=== PATIENT | male | born 1945 | race Caucasian/White ===

== ENCOUNTER → 2020-12-13 09:48 | Outpatient (BNVA) | payer MEDICARE, SELFPAY | PROVIDERS: PCP Internal Medicine; Visit Provider Urology | DX: N52.9 Male erectile dysfunction, unspecified (principal); C61 Malignant neoplasm of prostate | CPT/HCPCS: 99212 ==

== ENCOUNTER → 2021-12-14 09:22 | Outpatient (BNVA) | payer MEDICARE, BC, SELFPAY | PROVIDERS: PCP Internal Medicine; Visit Provider Urology | DX: C61 Malignant neoplasm of prostate (principal); N40.1 Benign prostatic hyperplasia with lower urinary tract symptoms; N52.9 Male erectile dysfunction, unspecified; N13.8 Other obstructive and reflux uropathy | CPT/HCPCS: 99212 ==

== ENCOUNTER 2023-02-14 08:53 | Outpatient (AMB) | payer MEDICARE, BC, SELFPAY ==
--- NOTE | 2023-02-14 08:56 | A.OFFVIS_ITS ---
Intake Intake Visit Reasons: 1Y PSA(set) Intake Note: Patient is Present for Follow Up PSA Urology Medication: None Antibiotic Allergies:None Blood Thinners:None [facility]: [facility] Required: No Allergies No Known Allergies Allergy (Verified 02/14/23 08:56) Medication List - Last Reconciled 02/14/23 by Saúl Paez MD omeprazole 20 mg PO DAILY HPI HPI Comments History of Present Illness Details Kristopher Bacon is very pleasant male.. He is a patient of Dr. Osorio. He is seen for the following urologic conditions. - prostate cancer - erectile dysfunction Continues to maintain effective urination PSA remains low Next year will be 10 years Discussed follow-up with PCP following 10 year rico Prostate cancer: Low-grade low volume prostate cancer diagnosed 2013 PSA remaining low Minimal issues with urination Continue with yearly follow-up ? Prostate cancer was diagnosed?2013.? Diagnosis was reached by?needle biopsy, for elevated PSA, PSA at diagnosis 7.7, size at TRUS 34cc.? The Harmony grade is?3+3 = 6.? TNM Classification of Malignant Tumours (TNM)?T1c.? The D'Henna (NCCN) risk category is?Low Risk (PSA< 10, Gl < 7, T1c).? Initial therapy included?Primary treatment, Brachytherapy, Additional treatment, Observation ? Recent labs included?a PSA (prostate-specific antigen) ?10/19 0.3, 05/22 0.2,, 11/19 0.2, 05/23 0.1, 11/20 0.1, 05/24 0.1, 11/21 0.1 - 5 yr move to yearly, 12/24 <0.1, 11/24 <0.1, 12/26 <0.1 ? Associated conditions ? erectile dysfunction ?Yes ? Erectile JUAN Score ?20 ? Therapeutic plan:?Continue with surveillance Erectile dysfunction:? He presents today for?for continued evaluation and management of e rectile dysfunction ?- at his point erectile performance not of interest to him or his .? Procedure(s)/Diagnosis causing dysfunction include?prostate brachytherapy.? Current treatment includes?none.? Treatment side effects include?none.? Prior therapies include?oral medications ?- 100mg sildenafil.? At this time he experiences erections?are partial and adequate for vaginal penetration, that last until ejaculation, JUAN 12-16 Mild-Moderate ED.? Nocturnal erections?do not occur.? Currently they are?in a stable relationship, has a partner who is interested in treatment.? Overall he is ?satisfied with the current management REPLACED BY [facility] Medical History GERD (gastroesophageal reflux disease) History of kidney stones Erectile dysfunction Prostate cancer Surgical History History of surgery Review of Systems Const Denies chills and Denies fever(s) Card Reports no additional complaints and Denies syncope Resp Denies cough GI Denies abdominal pain and Denies heartburn Reports as per HPI and Denies change in libido Neuro Denies syncope Psych Denies change in libido Endo Denies change in libido Physical Exam Const General: cooperative, healthy appearing, comfortable and no acute distress Orientation/consciousness: patient oriented x3 HEENT Face and sinus: Yes normal facial exam Mouth: moist mucous membranes Neck Neck: Yes normal visual inspection, Yes full ROM and Yes trachea midline Chest Chest palpation & inspection: normal inspection of the chest Resp Effort & Inspection: normal respiratory effort, able to speak in complete [place] and no respiratory distress GI Inspection: Yes normal to inspection Back/Spine/Pelvis Cervical Spine: normal cervical lordosis Thoracic/Lumbar Spine: thoracic and lumbar spine normal to inspection Skin General skin exam: no rashes or lesions noted Neuro General: patient oriented x3, gait normal, tone normal and moves all extremities Extrem General: Yes normal to inspection and Yes capillary refill normal Assessment & Plan Assessment & Plan (1) Prostate cancer: Code(s): C61 - Malignant neoplasm of prostate (2) Erectile dysfunction: Code(s): N52.9 - Male erectile dysfunction, unspecified Plan Twelve month follow-up Orders: Orders Prostate Specific Antigen 364 Days C61 - Malignant neoplasm of prostate Patient Instructions: Imaging studies, laboratory and physical exam results were discussed and reviewed in detail. No major barriers to patient understanding were identified. An opportunity to ask questions regarding the treatment plan was provided. All questions were answered. The patient expressed understanding and agreement with the above treatment plan. The patient is aware they should contact our office by phone for worsening of their current condition or the appearance of new urologic symptoms. Compliance is encouraged with any medications and followup testing that is ordered. It is a privilege to participate in the urologic care of your patient. If you have any questions or concerns regarding treatment for the above conditions, or other urologic issues, please do not hesitate to contact me. The office telephone contact is [phone]. This note is constructed using voice recognition software. While every effort has been made to ensure accuracy certified nurse operating room errors may have been included. Yours sincerely, Dr Saúl Paez MD, [facility] - Urology Providers of Expert, Compassionate Care for the Genitourinary System Coding Level of Care Code Est Pt Level 4 (75274) Diagnoses Prostate cancer C61 Erectile dysfunction N52.9
== END 2023-02-14 09:45 | disposition home or self-care (01) ==
PROVIDERS: PCP Internal Medicine; Visit Provider Urology
DX: C61 Malignant neoplasm of prostate (principal); N52.9 Male erectile dysfunction, unspecified
CPT/HCPCS: 99213

== ENCOUNTER → 2023-02-14 08:53 | Outpatient (BNVA) | payer MEDICARE, BC, SELFPAY | PROVIDERS: Visit Provider Urology | DX: C61 Malignant neoplasm of prostate (principal); N52.9 Male erectile dysfunction, unspecified | CPT/HCPCS: 99212 ==

== ENCOUNTER 2024-02-13 08:27 | Outpatient (AMB) | payer MEDICARE, SELFPAY ==
--- NOTE | 2024-02-13 08:46 | A.OFFVIS_ITS ---
Intake Visit Reasons: 1Y PSA(SET) Intake Note: Patient is Present for Follow Up PSA Urology Medication:None Antibiotic Allergies: None Blood Thinners:None Recent PSA: 02/07/2024- <0.04 Accompanied by: Self / Same As Patient Allergies No Known Allergies Allergy (Verified 02/13/24 08:48) HPI Comments Details: Kristopher Bacon is very pleasant male.. He is a patient of Dr. Osorio. He is seen for the following urologic conditions. - prostate cancer - erectile dysfunction Here for yearly follow-up PSA remains nondetectable Interval surveillance Prostate cancer: Low-grade low volume prostate cancer diagnosed 2013 PSA remaining low Minimal issues with urination Continue with yearly follow-up ? Prostate cancer was diagnosed?2013.? Diagnosis was reached by?needle biopsy, for elevated PSA, PSA at diagnosis 7.7, size at TRUS 34cc.? The Mekhi grade is?3+3 = 6.? TNM Classification of Malignant Tumours (TNM)?T1c.? The D'Henna (NCCN) risk category is?Low Risk (PSA< 10, Gl < 7, T1c).? Initial therapy included?Primary treatment, Brachytherapy, Additional treatment, Observation ? Recent labs included?a PSA (prostate-specific antigen) ?10/19 0.3, 05/22 0.2,, 11/19 0.2, 05/23 0.1, 11/20 0.1, 05/24 0.1, 11/21 0.1 - 5 yr move to yearly, 12/24 <0.1, 11/24 <0.1, 12/26 <0.1, 02/26 <0.1 ? Associated conditions ? erectile dysfunction ?Yes ? Erectile JUAN Score ?20 ? Therapeutic plan:?Continue with surveillance Erectile dysfunction:? He presents today for?for continued evaluation and management of erectile dysfunction ?- at his point erectile performance not of interest to him or his .? Procedure(s)/Diagnosis causing dysfunction include?prostate brachytherapy.? Current treatment includes?none.? Treatment side effects include?none.? Prior therapies include?oral medications ?- 100mg sildenafil.? At this time he experiences erections?are partial and adequate for vaginal penetration, that last until ejaculation, JUAN 12-16 Mild-Moderate ED.? Nocturnal erections?do not occur.? Currently they are?in a stable relationship, has a partner who is interested in treatment.? Overall he is ?satisfied with the current management [facility] Medical History GERD (gastroesophageal reflux disease) History of kidney stones Erectile dysfunction Prostate cancer Surgical History History of surgery Review of Systems Const Denies chills and Denies fever(s) Card Reports no additional complaints and Denies syncope Resp Denies cough GI Denies abdominal pain and Denies heartburn Reports as per HPI and Denies change in libido Neuro Denies syncope Psych Denies change in libido Endo Denies change in libido Physical Exam Const General: cooperative, healthy appearing, comfortable and no acute distress Orientation/consciousness: patient oriented x3 HEENT Face and sinus: Yes normal facial exam Mouth: moist mucous membranes Neck Neck: Yes normal visual inspection, Yes full ROM and Yes trachea midline Chest Chest palpation & inspection: normal inspection of the chest Resp Effort & Inspection: normal respiratory effort, able to speak in complete sentences and no respiratory distress GI Inspection: Yes normal to inspection Back/Spine/Pelvis Cervical Spine: normal cervical lordosis Thoracic/Lumbar Spine: thoracic and lumbar spine normal to inspection Skin General skin exam: no rashes or lesions noted Neuro General: patient oriented x3, gait normal, tone normal and moves all extremities Extrem General: Yes normal to inspection and Yes capillary refill normal Assessment & Plan Assessment & Plan (1) Prostate cancer: Code(s): C61 - Malignant neoplasm of prostate Category: Medical (2) Erectile dysfunction: Code(s): N52.9 - Male erectile dysfunction, unspecified Category: Medical Plan 12 month follow-up Patient Instructions: Imaging studies, laboratory and physical exam results were discussed and reviewed in detail. No major barriers to patient understanding were identified. An opportunity to ask questions regarding the treatment plan was provided. All questions were answered. The patient expressed understanding and agreement with the above treatment plan. The patient is aware they should contact our office by phone for worsening of their current condition or the appearance of new urologic symptoms. Compliance is encouraged with any medications and followup testing that is ordered. It is a privilege to participate in the urologic care of your patient. If you have any questions or concerns regarding treatment for the above conditions, or other urologic issues, please do not hesitate to contact me. The office telephone contact is [phone]. This note is constructed using voice recognition software. While every effort has been made to ensure accuracy vp software support errors may have been included. Yours sincerely, Dr Saúl Paez MD, [facility] - Urology Providers of Expert, Compassionate Care for the Genitourinary System Coding Level of Care Code Est Pt Level 4 (48638) Diagnoses Prostate cancer C61 Erectile dysfunction N52.9
== END 2024-02-13 09:37 | disposition home or self-care (01) ==
PROVIDERS: PCP Internal Medicine; Visit Provider Urology
DX: C61 Malignant neoplasm of prostate (principal); N52.9 Male erectile dysfunction, unspecified
CPT/HCPCS: 99214

== ENCOUNTER → 2024-02-13 08:27 | Outpatient (BNVA) | payer MEDICARE, SELFPAY | PROVIDERS: PCP Internal Medicine; Visit Provider Urology | DX: C61 Malignant neoplasm of prostate (principal); N52.9 Male erectile dysfunction, unspecified | CPT/HCPCS: 99212 ==